=== PATIENT | female | born 1985 | race Caucasian/White ===

== ENCOUNTER 2023-12-27 09:21 | Outpatient (AMB) | payer BC, SELFPAY ==
[2023-12-27 09:26] VITALS: BP 120/70; PULSE 69; O2SAT 98; BMI 29.9
--- NOTE | 2023-12-27 09:26 | A.OFFPC_ITS ---
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 Is last menstrual period known: Yes Last menstrual period: 12/22/23 Allergies No Known Allergies Allergy (Verified 12/27/23 09:31) Tobacco use date assessed: 12/27/23 Dental Screening Dental Screen Date: 12/27/23 Did you have a dental visit in the last 12 months?: Yes Did you have a dental problem in the last 6 months where you did not have access to dental care?: No Was dental information given to patient?: Patient has dentist HPI HPI Comments History of Present Illness Details This is a 38-year-old female with a past medical history of iron- deficiency anemia in the setting of menorrhagia and mild persistent asthma presenting to [facility] care. She transferred from my practice at [facility]. Asthma has been quiet. No recent exacerbation. She takes albuterol as needed. She used to take Flovent as needed during illness, but it is no longer available. At her physical exam with me on 10/18/2023 she reported a full area or lump on the right side of her neck for the past 5 years. She reported no changes and no pain associated with it. She had an ultrasound completed at [facility] on [facility] which showed an ovoid focus measuring 0.8 cm which could represent a small lymph node or lobulation of the right thyroid lobe. A right thyroid nodule was detected incidentally below this. It is a 0.7 cm TI-RADS 5 nodule. The patient is very anxious about the finding. It did not meet criteria for biopsy, and follow up ultrasound in 1 year was recommended per re port. She spoke to a covering provider at [facility] about the findings in my absence, and she said she was given conflicting information about whether or not to get a CT scan of her neck. TSH normal 11/2023 at 1.64. She is taking her iron supplement every other day. Recent CBC and iron studies were essentially normal. OBGYN recommended taking Advil or control for periods. She has not interested in control at this time. ROS: Constitutional: No unexplained weight loss, fever, chills, fatigue or night sweats. Neurologic: No headache, dizziness, syncope Endocrine: No cold or heat intolerance. No polyuria or polydipsia. Physical exam: Constitutional: Alert, in no distress. Neck: Supple, Full range of motion. No lymphadenopathy. No palpable masses or thyroid enlargement. Psychiatric: Normal mood and affect [facility] Medical History (Updated 12/27/23 @ 10:40 by BETH Mendiola) Thyroid nodule Mild persistent asthma without complication History of sinusitis Iron deficiency anemia delivery delivered Anemia Surgical History (Updated 12/27/23 @ 10:41 by BETH Mendiola) History of delivery Family History (Updated 12/27/23 @ 10:42 by BETH Mendiola) Father High cholesterol Heart attack Brother Type 1 diabetes Maternal Grandmother Breast cancer Social History (Updated 12/27/23 @ 09:41 by Brandy Ibarra [facility]) Household Members: Family Both parents involved: No Caregiver staying overnight: No Housing: House Are you a primary nurse healthcare manager to a significant other at home: Yes Do you presently have visiting nurse or other home services: No Alcohol intake: never Patient Tobacco Use Status: Never used Tobacco e-Cigarette/Vaping Use: Never Used Special keanu needs: No service: No 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 1. Little interest or pleasure in doing things: not at all 2. Feeling down, depressed, or hopeless: not at all 3. Trouble falling or staying asleep, or sleeping too much: not at all 4. Feeling tired or having little energy: not at all 5. Poor appetite or overeating: not at all 6. Feeling bad about yourself - or that you are a failure or have let yourself or your family down: not at all 7. Trouble concentrating on things, such as reading the newspaper or watching television: not at all 8. Moving or speaking so slowly that other people could have noticed. Or the opposite - being so fidgety or restless that you have been moving around a lot more than usual: not at all 9. Thoughts that you would be better off or of hurting yourself in some way: not at all Total score: 0 Depression Screening Interpretation: Negative Depression Screening Done: Yes Source: Developed by Drs. Jaycob Wilkerson, Sujata Liu, Juarez Andre and colleagues, with an educational maicol from [employer]. Thrive Questionnaire Date Thrive assessed: 12/27/23 I am a: Patient What is your living situation today?: I have a steady place to live Within the past 12 months, did the food you bought not last and you didn't have the money to get more?: Never true Within the past 12 months, did you worry whether your food would run out before you got money to buy more?: Never true Do you have trouble paying for medicines?: No Do you have trouble getting transportation to medical appointments?: No Do you have trouble paying your heating and electricity bill?: No Do you have trouble taking care of your child, family member or friend?: No Do you have trouble with day-to-day activities such as bathing, preparing meals, shopping, managing finances, etc.?: No Are you currently unemployed and looking for a job?: No Are you interested in more education?: No THRIVE Score: 0 AUDIT C Alcohol Use Questionnaire (AUDIT-C) 1. How often do you have a drink containing alcohol?: Never 3. How often do you have six or more drinks on one occasion?: Never Total Score: 0 IRIS-7 AMB Questionnaire IRIS-7 Date IRIS - 7 assessed: 12/27/23 Feeling nervous, anxious, or on edge: 0 = Not at all Not being able to stop or control worryin = Not at all Worrying too much about different things: 0 = Not at all Trouble relaxin = Not at all Being so restless that it is hard to sit still: 0 = Not at all Becoming easily annoyed or irritable: 0 = Not at all Feeling afraid as if something awful might happen: 0 = Not at all Total IRIS-7 score (0-4 normal; 5-9 mild; 10-14 moderate; 15-21 severe): 0 Source: Developed by Drs. Jaycob Wilkerson, Juarez Robersonoenke and colleagues, with an educational maicol from [employer]. Physical exam (Primary Care) Vital Signs: Last Vital Signs Pulse 69 12/27/23 09:26 BP 120/70 12/27/23 09:26 Pulse Ox 98 12/27/23 09:26 Oxygen Delivery Method Room Air 12/27/23 09:26 BMI result Body Mass Index 29.9 Tobacco/Smoking Status: Tobacco use Status Tobacco use date assessed 12/27/23 12/27/23 09:46 Patient Tobacco Use Status Never used Tobacco 12/27/23 09:46 e-Cigarette/Vaping Use Never Used 12/27/23 09:46 PHQ-9: PHQ-9 Score PHQ-9: Total score 0 12/27/23 09:46 Depression Screening Interpretation: Negative Thrive Assessment: Date of Thrive Assessment Date Thrive assessed 12/27/23 12/27/23 09:46 Assessment and Plan Assessment & Plan (1) Thyroid nodule: Comment: TI-RADS 5 nodule on ultrasound 11/05/2023. Did not meet size criteria for biopsy at 0.7 cm. Patient referred to endocrinology. Per report ultrasound recommended in 1 year. Code(s): E04.1 - Nontoxic single thyroid nodule Plan: Patient is understandably anxious about this finding. We discussed criteria for biopsy. Seeing as though it is only 0.2 cm away from biopsy threshold and is TI-RADS 5 I ordered a repeat ultrasound for 3 months rather than 12 months, and I will also refer her to an facilities manager for further input on surveillance and decision to biopsy. I do not believe patient needs CT scan at this time as ultrasound would be the preferred imaging method for the nodule. (2) Mild persistent asthma without complication: Code(s): J45.30 - Mild persistent asthma, uncomplicated Plan: Stable. Continue albuterol as needed. Submitted QVAR RediHaler 1 puff twice daily to replace Flovent to activate during illness. Reviewed that she needs to be seen in office for evaluation for exacerbations. (3) Iron deficiency anemia: Code(s): D50.9 - Iron deficiency anemia, unspecified Plan: Continue low iron 1 tab every other day. Repeat labs at next follow up. Orders: Orders US thyroid 3 Months E04.1 - Nontoxic single thyroid nodule Referrals Endocrinology Referral E04.1 - Nontoxic single thyroid nodule Medications: New beclomethasone dipropionate 80 mcg/actuation (Qvar RediHaler) 1 inh inhalation Q12H 10.6 grams 2RF Coding Level of Care Code Est Pt Level 4 (48307) Complex EM visit Add On G2211 Diagnoses Thyroid nodule E04.1 Mild persistent asthma without complication J45.30 Iron deficiency anemia D50.9
== END 2023-12-27 10:27 | disposition home or self-care (01) ==
PROVIDERS: PCP Physician Assistant Medical; Visit Provider Physician Assistant Medical
DX: E04.1 Nontoxic single thyroid nodule (principal); J45.30 Mild persistent asthma, uncomplicated; D50.9 Iron deficiency anemia, unspecified
CPT/HCPCS: 99214

== ENCOUNTER 2024-03-18 10:13 | Outpatient (REF) | payer BC, SELFPAY ==
--- NOTE | ~2024-03-18 | US_ITS ---
EXAMINATION: US THYROID CLINICAL INFORMATION: Goiter. COMPARISON: None available. TECHNIQUE: Linear transducer grayscale and color Doppler examination with attention to the region of the thyroid. FINDINGS: SIZE: Measurements of the thyroid lobes and nodules are given in sagittal, anteroposterior and transverse dimensions respectively. Right Thyroid Lobe: 5.0 x 1.8 x 1.6 cm, volume 7.5 mL. Parenchyma: The gland echotexture is mildly heterogeneous. Thyroid vascularity is normal. Left Thyroid Lobe: 4.3 x 1.2 x 1.2 cm, volume 3.1 mL. Parenchyma: The gland echotexture is mildly heterogeneous. Thyroid vascularity is normal. Isthmus: 0.2 cm in maximum AP dimension. Estimated total number of nodules greater than or equal to 1 cm: 0. Gy[place]um Roofer nodules are described as follows: 1. Location: Right mid. Size: 0.6 x 0.5 x 0.4 cm, volume 0.06 mL. Nodule characteristics: Composition: Solid/almost completely solid (2). Echogenicity: Very hypoechoic (3). Shape: Not taller than wide (0). Margins: Ill-defined (0). Echogenic Foci: Peripheral calcifications (2). ACR TI-RADS total points: 7 ACR TI-RADS category: 5 NODES: No lymphadenopathy is seen in the tissue surrounding the thyroid gland. US/US thyroid IMPRESSION: Right 0.6 cm TR 5 thyroid nodule. Fine-needle aspiration recommended if more than or equal to 1 cm in maximum dimension. This study was presented today, March 18, 2024, for interpretation. Stat results provided at this time as requested by referring provider. ACR TI-RADS RECOMMENDATION REFERENCE: Ultrasound-guided fine-needle aspiration, followup ultrasound, no further follow up. * TR1 (0 point) and TR2 (2 points): No FNA or follow up. * TR3 (3 points): FNA if more than or equal to 2.5 cm in maximum dimension, followup ultrasound in 1, 3 and 5 years if 1.5 to 2.4 cm in maximum dimension. * TR4 (4-6 points): FNA if more than or equal to 1.5 cm in maximum dimension, followup ultrasound in 1, 2, 3 and 5 years if 1 to 1.4 cm in maximum dimension. * TR5 (more than or equal to 7 points): FNA if more than or equal to 1 cm in maximum dimension, followup ultrasound every year for 5 years if 0.5 to 0.9 cm in maximum dimension. * TR3, TR4 or TR5 nodules that are below the size threshold for followup receive no follow up. Electronically signed by: Alejandrina Timmons MD 03/18/2024 12:43 PM EDT RP
== END 2024-03-18 10:14 | disposition home or self-care (01) ==
LOC: HO.US 10:13
PROVIDERS: PCP Physician Assistant Medical; Visit Provider Physician Assistant Medical
DX: E04.1 Nontoxic single thyroid nodule (principal)
CPT/HCPCS: 76536

== ENCOUNTER 2024-03-20 11:36 | Outpatient (AMB) | payer BC, SELFPAY ==
--- NOTE | 2024-03-20 11:45 | A.OFFPC_ITS ---
Vital Signs 03/20/24 11:47 Height 5 ft 4 in Weight 172 lb BMI 29.5 BP 116/70 Blood Pressure Location Lt brachial Position Sitting Pulse 68 Pulse Source Pulse Oximeter Pulse Oximetry (%) 98 Oxygen Delivery Method Room Air Intake Visit Reasons: follow up thyroid/anemia Intake Note: Follow up Nursing Specialist Required: No Allergies No Known Allergies Allergy (Verified 03/20/24 11:46) Tobacco use date assessed: 12/27/23 Dental Screening Dental Screen Date: 12/27/23 HPI HPI Comments History of Present Illness Details This is a 38-year-old female with a past medical history of iron- deficiency anemia in the setting of menorrhagia, thyroid nodule and mild persistent asthma presenting for follow up. Asthma has been quiet. No recent exacerbation. She takes albuterol as needed. She has a prescription for QVAR to use if she gets sick. At her physical exam with ky on 10/18/2023 she reported a full area or lump on the right side of her neck for the past 5 years. She reported no changes and no pain associated with it. She had an ultrasound completed at [facility] on [facility] which showed an ovoid focus measuring 0.8 cm which could represent a small lymph node or lobulation of the right thyroid lobe. A right thyroid nodule was detected incidentally below this. It was a 0.7 cm TI-RADS 5 nodule not meeting criteria for biopsy, and a follow up ultra sound was recommended in 1 year. The patient was very anxious about the findings so we decided to get an ultrasound performed in 3 months and refer to endocrinology. She has an appointment scheduled with Dr. Simms, and that is in a few months. TSH normal 11/2023 at 1.64. The ultrasound was repeated at [facility] on 03/18/2024, and it showed a 0.6 x 0.5 x 0.4 cm right mid thyroid nodule, TI-RADS 5. We reviewed that for this size FNA is not indicated, and an ultrasound she be repeated in 1 year. She is taking her iron supplement every other day. OBGYN recommended taking Advil or control for periods. She has not interested in control at this time. ROS: Constitutional: No unexplained weight loss, fever, chills, fatigue or night sweats. Neurologic: No headache, dizziness, syncope Endocrine: No cold or heat intolerance. No polyuria or polydipsia. No dysphagia. Physical exam: Constitutional: Alert, in no distress. Neck: Supple, Full range of motion. No lymphadenopathy. No palpable thyroid masses. Respiratory: Clear to auscultation. Cardiovascular: S1 S2 regular. No murmurs. No carotid bruits. [facility] Medical History (Updated 03/20/24 @ 13:33 by BETH Mendiola) Thyroid nodule Mild persistent asthma without complication History of sinusitis Iron deficiency anemia delivery delivered Anemia Surgical History (Updated 12/27/23 @ 10:41 by BETH Mendiola) History of delivery Family History (Updated 12/27/23 @ 10:42 by BETH Mendiola) Father High cholesterol Heart attack Brother Type 1 diabetes Maternal Grandmother Breast cancer Social History (Updated 12/27/23 @ 09:41 by Brandy Ibarar [facility]) Household Members: Family Both parents involved: No Caregiver staying overnight: No Housing: House Are you a primary veterinarian laboratory animal care to a significant other at home: Yes Do you presently have visiting nurse or other home services: No Alcohol intake: never Patient Tobacco Use Status: Never used Tobacco e-Cigarette/Vaping Use: Never Used Special keanu needs: No service: No 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 Jaycob Wilkerson, Sujata Liu, Juarez Andre and colleagues, with an educational maicol from [employer]. Physical exam (Primary Care) Vital Signs: Last Vital Signs Pulse 68 03/20/24 11:47 BP 116/70 03/20/24 11:47 Pulse Ox 98 03/20/24 11:47 Oxygen Delivery Method Room Air 03/20/24 11:47 BMI result Body Mass Index 29.5 Tobacco/Smoking Status: Tobacco use Status Tobacco use date assessed 12/27/23 03/20/24 11:46 Patient Tobacco Use Status Never used Tobacco 03/20/24 11:46 e-Cigarette/Vaping Use Never Used 03/20/24 11:46 Thrive Assessment: Date of Thrive Assessment Date Thrive assessed 12/27/23 03/20/24 11:46 Coding Level of Care Code Est Pt Level 4 (84174) Complex EM visit Add On G2211 Diagnoses Iron deficiency anemia due to chronic blood loss D50.0 Iron deficiency anemia type: chronic blood loss Thyroid nodule E04.1 Mild persistent asthma without complication J45.30 Assessment & Plan Assessment & Plan (1) Iron deficiency anemia: Code(s): D50.9 - Iron deficiency anemia, unspecified Category: Medical Qualifiers: Iron deficiency anemia type: chronic blood loss Qualified Code(s): D50.0 - Iron deficiency anemia secondary to blood loss (chronic) Plan: Continue iron supplement every other day. Check labs. (2) Thyroid nodule: Code(s): E04.1 - Nontoxic single thyroid nodule Category: Medical Plan: Thyroid ultrasound reviewed with the patient. She feels reassured. She will keep the follow up appointment scheduled with the medical office technician to review this. Repeat ultrasound in 1 year is recommended. (3) Mild persistent asthma without complication: Code(s): J45.30 - Mild persistent asthma, uncomplicated Category: Medical Plan: Stable. Continue current regimen. Plan Patient will schedule her physical exam from 11/04/2024. Orders: Orders Complete Blood Count Auto Diff Today D50.9 - Iron deficiency anemia, unspecified Ferritin Today D50.9 - Iron deficiency anemia, unspecified US thyroid 1 Year E04.1 - Nontoxic single thyroid nodule IRON PROFILE Today D50.9 - Iron deficiency anemia, unspecified
[2024-03-20 11:47] VITALS: BP 116/70; PULSE 68; O2SAT 98; BMI 29.5
== END 2024-03-20 12:20 | disposition home or self-care (01) ==
PROVIDERS: PCP Physician Assistant Medical; Visit Provider Physician Assistant Medical
DX: D50.0 Iron deficiency anemia secondary to blood loss (chronic) (principal); E04.1 Nontoxic single thyroid nodule; J45.30 Mild persistent asthma, uncomplicated

== ENCOUNTER → 2024-03-20 11:36 | Outpatient (BNVA) | payer BC, SELFPAY | PROVIDERS: PCP Physician Assistant Medical; Visit Provider Physician Assistant Medical ==

== ENCOUNTER 2024-05-02 09:15 | Outpatient (REF) | payer BC, SELFPAY ==
[2024-05-02 11:02] LABS: MANUAL DIFF FLAG NO
[2024-05-02 11:24] LABS: Basophils Percent Auto 0.5 % (0-2); Eosinophils Absolute Auto 0.1 X10*3/uL (0.0-0.4); Eosinophils Percent Auto 1.3 % (0-4); Hematocrit 39.2 % (37.0-47.0); Hemoglobin 12.9 g/dl (12.0-16.0); Imm Gran Abs Auto 0.03 X10*3/uL (0.00-0.03); Imm Gran Pct Auto 0.4 % (0.0-0.4); Lymphocytes Absolute Auto 1.1 X10*3/uL (1.2-4.9); Lymphocytes Percent Auto 13.3 % (20-40); Mean Corpuscular HGB Conc 32.9 g/dl (31.0-35.0); Mean Corpuscular Hemoglobin 28.5 pg (27.0-33.0); Mean Corpuscular Volume 86.7 fL (80.0-98.0); Mean Platelet Volume 12.6 fL (9.4-12.3); Monocytes Absolute Auto 0.7 X10*3/uL (0.1-1.2); Monocytes Percent Auto 8.2 % (2-11); Neutrophils Absolute Auto 6.1 x10*3/uL (2.0-8.3); Neutrophils Percent Auto 76.3 % (45-73); Platelet Count 212 X10*3/uL (160-400); Red Blood Count 4.52 X10*6/uL (4.20-5.50); Red Cell Distribution Width 13.7 % (11.0-16.0)
[2024-05-02 12:36] LABS: Iron 112 mcg/dL (30-160); Percent Iron Saturation 41 % (15-50); Total Iron Binding Capacity 272 mcg/dL (228-428); Unsaturated Iron Binding 160 ug/dL
[2024-05-02 13:04] LABS: Ferritin 24 ng/mL (10-122)
== END 2024-05-02 09:16 | disposition home or self-care (01) ==
LOC: HO.WFDLDS 09:15
PROVIDERS: Visit Provider Physician Assistant Medical
DX: D50.9 Iron deficiency anemia, unspecified (principal)
CPT/HCPCS: 36415; 82728; 83540; 85025

== ENCOUNTER 2024-05-19 13:45 | Outpatient (AMB) | payer BC, SELFPAY ==
--- NOTE | 2024-05-19 13:35 | A.OFFPC_ITS ---
Intake Visit Reasons: sinus/cough Intake Note: Sinus pressure and cough 9-10 days, worsening the past three days Allergies No Known Allergies Allergy (Verified 05/19/24 13:36) Tobacco use date assessed: 12/27/23 Dental Screening Dental Screen Date: 12/27/23 HPI HPI Comments History of Present Illness Details This is a 39-year-old female with a past medical history of a thyroid nodule, iron-deficiency anemia, mild persistent asthma and sinusitis presenting for a sick visit. Patient visit conducted via telehealth. Symptoms began 05/10/2024. Endorses sinus congestion, copious postnasal drip, pain above her eyes and in her cheeks. Endorses cough that worsens at night and wheezing. Albuterol alleviate symptoms but only for 30 minutes to 60 minutes. Started Pulmicort and does not feel like it helps. Feels like all the congestion is stuck in her sinuses. She took a negative COVID-19 test at home. She denies fevers, chills, chest pain, nausea, vomiting. ROS: Constitutional: No fevers or chills. +fatigue Eyes: No vision changes, blurry vision, double vision, eye pain, eye redness, eye discharge. ENT: No ear pain or sore throat. See HPI Respiratory: No shortness of breath or hemoptysis Cardiovascular: No chest pain [facility] Medical History (Updated 03/20/24 @ 13:33 by BETH Mendiola) Thyroid nodule Mild persistent asthma without complication History of sinusitis Iron deficiency anemia delivery delivered Anemia Surgical History (Updated 12/27/23 @ 10:41 by BETH Mendiola) History of delivery Family History (Updated 12/27/23 @ 10:42 by BETH Mendiola) Father High cholesterol Heart attack Brother Type 1 diabetes Maternal Grandmother Breast cancer Social History (Updated 12/27/23 @ 09:41 by Brandy Ibarra CMA) Household Members: Family Both parents involved: No Caregiver staying overnight: No Housing: House Are you a primary care assistant to a significant other at home: Yes Do you presently have visiting nurse or other home services: No Alcohol intake: never Patient Tobacco Use Status: Never used Tobacco e-Cigarette/Vaping Use: Never Used Special keanu needs: No service: No 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 How often do you have six or more drinks on one occasion?: Never Total Score: 0 IRIS-7 AMB Questionnaire IRIS-7 Date IRIS - 7 assessed: 12/27/23 Source: Developed by Drs. Jaycob Wilkerson, Sujata Liu, Juarez Andre and colleagues, with an educational maicol from [employer]. Physical exam (Primary Care) Tobacco/Smoking Status: Tobacco use Status Tobacco use date assessed 12/27/23 05/19/24 13:37 Patient Tobacco Use Status Never used Tobacco 05/19/24 13:37 e-Cigarette/Vaping Use Never Used 05/19/24 13:37 Thrive Assessment: Date of Thrive Assessment Date Thrive assessed 12/27/23 05/19/24 13:37 Telehealth Telehealth Telehealth Platform: Telephone Location of provider rendering services: practice address Location of patient: address on file Patient Identification confirmed using: Name, : Yes Telehealth method: voice only Patient verbally consented to treatment: No Patient verbally consented to billing insurance company: No Patient informed of any privacy concerns related to visit: No Minutes spent on Phone/Video with Pt.: 11 Coding Level of Care Code Tele Est Pt Level 4 (75169) Diagnoses Mild persistent asthma with exacerbation J45.31 Acute sinusitis J01.90 Assessment & Plan Assessment & Plan (1) Mild persistent asthma with exacerbation: Code(s): J45.31 - Mild persistent asthma with (acute) exacerbation (2) Acute sinusitis: Code(s): J01.90 - Acute sinusitis, unspecified Plan Prescribed prednisone taper for exacerbation. Side effects and administration reviewed. Sent Augmentin 1 pill twice daily times 10 days. Take with food and have yogurt and probiotics. Discontinue Pulmicort. I will see if insurance will cover Flovent which she activates during illness to prevent asthma exacerbation. This medication has been effective for her in the past. Recommended rest, fluids, cool mist humidifier, Vicks. Warning signs warranting ER evaluation review. Patient will call if symptoms do not resolve or worsen. Medications: New prednisone orally 1 time a day; Take 3 tabs po qam x 3 days, then take 2 tabs po qam x 3 days, then take 1 tab po qam x 3 days 18 tabs 0RF amoxicillin-pot clavulanate 875-125 mg 1 tab PO BID 20 tabs 0RF fluticasone propionate 110 mcg/actuation 1 puff inhalation Q12H 12 grams 3RF Discontinued beclomethasone dipropionate 80 mcg/actuation (Qvar RediHaler) Discontinued Reason: Doctor's Order 1 inh inhalation Q12H 10.6 grams 2RF budesonide 90 mcg/actuation (Pulmicort Flexhaler) Discontinued Reason: Doctor's Order 2 inhalations inhalation Q12H 1 ea 5RF
== END 2024-05-19 14:48 | disposition home or self-care (01) ==
LOC: HO.HMCFM 13:45
PROVIDERS: PCP Physician Assistant Medical; Visit Provider Physician Assistant Medical
DX: J45.31 Mild persistent asthma with (acute) exacerbation (principal); J01.90 Acute sinusitis, unspecified

== ENCOUNTER → 2024-05-19 13:45 | Outpatient (BNVA) | payer BC, SELFPAY | PROVIDERS: PCP Physician Assistant Medical; Visit Provider Physician Assistant Medical ==

== ENCOUNTER 2024-10-27 10:23 | Outpatient (AMB) | payer BC, SELFPAY ==
--- NOTE | 2024-10-27 10:26 | MHC.PC.OV ---
Vital Signs 10/27/24 10:31 Height 5 ft 4 in Weight 171 lb 2 oz BMI 29.4 BP 102/72 Blood Pressure Location Rt brachial Position Sitting Pulse 64 Pulse Source Pulse Oximeter Temp 97.4 F Temp Source Temporal Artery Scan Pulse Oximetry (%) 99 Oxygen Delivery Method Room Air Intake Visit Reasons: annual physical Intake Note: Floresita presents in the office today for her annual physical. Allergies No Known Allergies Allergy (Verified 10/27/24 10:29) Tobacco use date assessed: 10/27/24 Dental Screening Dental Screen Date: 10/27/24 Did you have a dental visit in the last 12 months?: No Did you have a dental problem in the last 6 months where you did not have access to dental care?: No Was dental information given to patient?: Patient declined HPI HPI Comments History of Present Illness Details This is a 39-year-old female with a past medical history of iron-deficiency anemia in the setting of menorrhagia, thyroid nodule and mild persistent asthma presenting for a physical. Asthma has been quiet. No recent exacerbation. She takes albuterol as needed. Her insurance has not been covering the inhalers, but she says her children are on the same insurance and get fluticasone now. I submitted this to the pharmacy. She tried dry powdered inhalers, but they were ineffective. She got flu this past year and had pneumonia but did not require hospitalization. We discussed getting the pneumococcal vaccine, and I recommended receiving this at the pharmacy. She does not get flu vaccine or COVID vaccines by choice. Patient seen by endocrinology for the thyroid nodule which was demonstrated on ultrasound. She has a another order to repeat the thyroid ultrasound in March. She is taking her iron supplement every other day. OBGYN recommended taking Advil or control for periods. She has not interested in control at this time. She is overdue for an exam, and she will contact her plate painter. She is under a lot of stress. Her 12-year-old son is having behavioral issues at home and school. He will be doing a partial hospitalization program. He has ADHD and OCD. It is very frustrating and sad for her. He has been hospitalized for suicide ideation. She also has a 6-year-old at home who is doing very well. Patient says she does not feel depressed or overly anxious, and she is not interested in a referral for counseling or other support at this time. Tdap 08/06/2018. .ROS: Constitutional: No unexplained weight loss, fever, chills, fatigue or night sweats. Eyes: No vision changes, blurry vision, double vision, eye pain, eye redness, eye discharge. ENT: No hearing loss, sneezing, congestion, runny nose or sore throat. Respiratory: No shortness of breath, cough or sputum production. Cardiovascular: No chest pain, chest pressure or chest discomfort. No palpitations or pedal edema. Gastrointestinal: No anorexia, nausea, vomiting or diarrhea. No abdominal pain or blood in stool. Genitourinary: No dysuria, hematuria, urinary frequency. Neurologic: No headache, dizziness, syncope, unilateral weakness, ataxia, numbness or tingling in the extremities. Musculoskeletal: No muscle pain, back pain, joint pain or swelling. Hematologic/Lymphatics: No bleeding or bruising. No painful lymph nodes. Skin: No rash , changing moles or new moles Endocrine: No cold or heat intolerance. No polyuria or polydipsia. Psychiatric: No depression or anxiety. No SI/HI. See HPI Physical exam: Constitutional: Alert, in no distress. Head: Normocephalic. Eyes: Pupils are equal, round and reactive to light. Extraocular muscles intact. Ear, Nose and Throat: Canals clear. TMs normal. Normal nasal mucosa. No nasal discharge. No oral lesions. Neck: Supple, Full range of motion. No lymphadenopathy. No palpable thyroid masses. Respiratory: Clear to auscultation. Cardiovascular: S1 S2 regular. No murmurs Gastrointestinal: Abdomen soft, non-tender, non-distended. Normal bowel sounds. No palpable masses. Neurologic: No focal neurological deficits. Symmetric patellar reflexes. Moves all extremities spontaneously. Sensation intact bilaterally. Skin: No rashes Musculoskeletal: No gross deformities. Normal range of motion. Extremities: Warm and well perfused. No clubbing, cyanosis or edema. Intact peripheral pulses bilaterally Psychiatric: Normal mood and affect [facility], [facility] Medical History (Updated 10/27/24 @ 11:00 by BETH Mendiola) Screening for cardiovascular condition Routine physical examination Thyroid nodule Mild persistent asthma without complication History of sinusitis Iron deficiency anemia delivery delivered Anemia Surgical History (Updated 12/27/23 @ 10:41 by BETH Mendiola) History of delivery Family History (Updated 10/27/24 @ 10:31 by Pratima Price MA) Father High cholesterol Heart attack Brother Type 1 diabetes Maternal Grandmother Breast cancer Social History (Updated 12/27/23 @ 09:41 by Brandy Ibarra [facility]) Household Members: Family Both parents involved: No Caregiver staying overnight: No Housing: House Are you a primary care management specialist to a significant other at home: Yes Do you presently have visiting nurse or other home services: No Alcohol intake: never Patient Tobacco Use Status: Never used Tobacco e-Cigarette/Vaping Use: Never Used Special keanu needs: No service: No 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 1. Little interest or pleasure in doing things: not at all 2. Feeling down, depressed, or hopeless: not at all 3. Trouble falling or staying asleep, or sleeping too much: not at all 4. Feeling tired or having little energy: not at all 5. Poor appetite or overeating: not at all 6. Feeling bad about yourself - or that you are a failure or have let yourself or your family down: not at all 7. Trouble concentrating on things, such as reading the newspaper or watching television: not at all 8. Moving or speaking so slowly that other people could have noticed. Or the opposite - being so fidgety or restless that you have been moving around a lot more than usual: not at all 9. Thoughts that you would be better off or of hurting yourself in some way: not at all Total score: 0 Depression Screening Interpretation: Negative Depression Screening Done: Yes [id number] - PHQ-9 Billing: Patient declined-do not bill Source: Developed by Drs. Jaycob Wilkerson, Sujata Liu, Juarez Andre and colleagues, with an educational maicol from [employer]. Thrive Questionnaire Date Thrive assessed: 10/27/24 I am a: Patient What is your living situation today?: I have a steady place to live Within the past 12 months, did the food you bought not last and you didn't have the money to get more?: Never true Within the past 12 months, did you worry whether your food would run out before you got money to buy more?: Never true Do you have trouble paying for medicines?: No Do you have trouble getting transportation to medical appointments?: No Do you have trouble paying your heating and electricity bill?: No Do you have trouble taking care of your child, family member or friend?: No Do you have trouble with day-to-day activities such as bathing, preparing meals, shopping, managing finances, etc.?: No Are you currently unemployed and looking for a job?: No Are you interested in more education?: No Please select the resources that you would like help with: None Currently or been in a relationship where the following occur: No concerns reported THRIVE Score: 0 AUDIT C Alcohol Use Questionnaire (AUDIT-C) 1. How often do you have a drink containing alcohol?: Never Total Score: 0 Score Reviewed/Action Taken: No IRIS-7 AMB Questionnaire RIIS-7 Date IRIS - 7 assessed: 10/27/24 Feeling nervous, anxious, or on edge: 1 = Several days Not being able to stop or control worryin = Not at all Worrying too much about different things: 0 = Not at all Trouble relaxin = Not at all Being so restless that it is hard to sit still: 0 = Not at all Becoming easily annoyed or irritable: 0 = Not at all Feeling afraid as if something awful might happen: 1 = Several days Total IRIS-7 score (0-4 normal; 5-9 mild; 10-14 moderate; 15-21 severe): 2 Source: Developed by Drs. Jaycob Wilkerson, Sujata Liu, Juarez Andre and colleagues, with an educational maicol from [employer]. IRIS-7 Assessment Billing IRIS-7 Assessment Tool: IRIS-7 Assessment 97642 Physical exam (Primary Care) Vital Signs: Last Vital Signs Temp 97.4 F 10/27/24 10:31 Pulse 64 10/27/24 10:31 BP 102/72 10/27/24 10:31 Pulse Ox 99 10/27/24 10:31 Oxygen Delivery Method Room Air 10/27/24 10:31 BMI result Body Mass Index 29.4 Tobacco/Smoking Status: Tobacco use Status Tobacco use date assessed 10/27/24 10/27/24 10:34 Patient Tobacco Use Status Never used Tobacco 10/27/24 10:34 e-Cigarette/Vaping Use Never Used 10/27/24 10:34 PHQ-9: PHQ-9 Score PHQ-9: Total score 0 10/27/24 10:50 Depression Screening Interpretation: Negative Thrive Assessment: Date of Thrive Assessment Date Thrive assessed 10/27/24 10/27/24 10:34 Currently or been in a relationship where the following occur: No concerns reported Coding Level of Care Code Est Pt Prev Care 18-39y(81178) Diagnoses Routine physical examination Z00.00 Iron deficiency anemia due to chronic blood loss D50.0 Iron deficiency anemia type: chronic blood loss Mild persistent asthma without complication J45.30 Thyroid nodule E04.1 Additional Codes IRIS-7 Assessment Billing - IRIS-7 Assessment Tool: IRIS-7 Assessment 44990 ([id number]) Assessment & Plan Assessment & Plan (1) Routine physical examination: Code(s): Z00.00 - Encounter for general adult medical examination without abnormal findings Category: Medical (2) Iron deficiency anemia: Code(s): D50.9 - Iron deficiency anemia, unspecified Category: Medical Qualifiers: Iron deficiency anemia type: chronic blood loss Qualified Code(s): D50.0 - Iron deficiency anemia secondary to blood loss (chronic) (3) Mild persistent asthma without complication: Code(s): J45.30 - Mild persistent asthma, uncomplicated Category: Medical (4) Thyroid nodule: Code(s): E04.1 - Nontoxic single thyroid nodule Category: Medical Plan Patient is seen today for a routine physical. As part of this visit we reviewed the following issues, which are considered and essential part of preventative health in this age group: - Breast Cancer screening - Annual Coordinate Measuring Equipment Operator exam - Blood pressure screening - Cholesterol screening - Osteoporosis prevention including calcium/vitamin D intake, weight bearing exercise & smoking cessation - Nutritional and exercise counseling - Counseling of injury prevention including fire prevention, smoke alarms and seat belt usage - Screening for depression - Education about skin cancer - Recommendations about immunizations - Recommendation of an eye exam - Screening for substance abuse She has a thyroid ultrasound order for March. Check TSH. She is going to follow up with endocrinology. Submitted fluticasone. Continue albuterol as needed. Patient tried dry powder inhaler which was ineffective. Check labs for anemia. Orders: Orders Complete Blood Count no Diff Today D50.0 - Iron deficiency anemia secondary to blood loss (chronic), E04.1 - Nontoxic single thyroid nodule, Z00.00 - Encounter for general adult medical examination without abnormal findings, Z13.6 - Encounter for screening for cardiovascular disorders IRON PROFILE Today D50.0 - Iron deficiency anemia secondary to blood loss (chronic), D64.9 - Anemia, unspecified, E04.1 - Nontoxic single thyroid nodule, Z00.00 - Encounter for general adult medical examination without abnormal findings, Z13.6 - Encounter for screening for cardiovascular disorders Ferritin Today D50.0 - Iron deficiency anemia secondary to blood loss (chronic), E04.1 - Nontoxic single thyroid nodule, Z00.00 - Encounter for general adult medical examination without abnormal findings, Z13.6 - Encounter for screening for cardiovascular disorders Comprehensive Met. Panel Today D50.0 - Iron deficiency anemia secondary to blood loss (chronic), E04.1 - Nontoxic single thyroid nodule, Z00.00 - Encounter for general adult medical examination without abnormal findings, Z13.6 - Encounter for screening for cardiovascular disorders TSH reflex Free T4 Today D50.0 - Iron deficiency anemia secondary to blood loss (chronic), E04.1 - Nontoxic single thyroid nodule, Z00.00 - Encounter for general adult medical examination without abnormal findings, Z13.6 - Encounter for screening for cardiovascular disorders Lipid Panel Today D50.0 - Iron deficiency anemia secondary to blood loss (chronic), E04.1 - Nontoxic single thyroid nodule, E78.5 - Hyperlipidemia, unspecified, Z00.00 - Encounter for general adult medical examination without abnormal findings, Z13.6 - Encounter for screening for cardiovascular disorders Medications: New fluticasone propionate 110 mcg/actuation 1 puff inhalation BID 12 grams 5RF
[2024-10-27 10:31] VITALS: BP 102/72; PULSE 64; TEMP 36.3; O2SAT 99; BMI 29.4
--- OUTSIDE RECORDS SUMMARY | 2024-10-27 10:57 | XMS_ITS | Data Portability ---
Author Organization BETH Romero [facility], [address] Address [address] [place] [address] Assessment No assessment recorded. Plan of Treatment Reminders Order Date Submit Date Provider Last Modified By Organization Details Last Modified Time Details Appointments None recorded. Lab rapid flu (A+B) 2024 025 [email or web address] [facility] [facility], [address] [place], [address], 19:24:02 Referral None recorded. Procedures None recorded. Surgeries None recorded. Imaging None recorded. Medication Orders Tamiflu 75 mg capsule 2024 025 [facility] #[id number], [address] [place], [address], 19:25:43 Zithromax Z-Collin 250 mg tablet 2024 025 [facility] #[id number], [address] [place], [address], 19:25:43 Patient TargetsNo targets recorded. Patient Instructions Encounter Date Encounter Id Patient Instructions Last Modified By Organization Details Last Modified Time 07/13/2024 [id number] walking pneumonia: care instructions [email or web address] Not available 07/13/2024 19:26:12 You can take ove r the counter tylenol or ibuprofen per package instructions for the pain. See printed instructions. Follow-up with your doctor if no improvement in 1 week. Seek Emergency Medical evaluation for any worsening symptoms. [email or web address] Not available 07/13/2024 19:25:54 Reason for Referral None Reported. Results Created Date Observation Date Name Description Value Unit Range Abnormal Flag Note LastModifiedBy Organization Detail LastModifiedTime 07/13/1907/13/2024 rapid flu (A+B) Unknown Analyte negati ve Not Available [facility] [address] [place] [address], [phone], 07/13/2024 17:45:11 07/13/1907/13/2024 rapid flu (A+B) Unknown Analyte negati ve Not Available [address], [address], 07/13/2024 17:45:11 07/13/1907/13/2024 rapid flu (A+B) Unknown Analyte yes Not Available [address], [address], 07/13/2024 17:45:11 Result Notes None recorded. Problems No Known Problems Medical Equipment None Reported. Allergies No known drug allergies Medications Name Sig Start Date Stop Date Status Note LastModified by Organization Details LastModified Time prednisone 20 mg tablet 07/13 completed Not Available Not Available Not Available Zithromax Z-Collin 250 mg tablet TAKE 2 TABLETS (500 MG) BY ORAL ROUTE ONCE DAILY FOR 1 DAY THEN 1 TABLET (250 MG) BY ORAL ROUTE ONCE DAILY FOR 4 DAYS 2024 active Not Available Not Available Not Avai lable Tamiflu 75 mg capsule Take 1 capsule twice a day by oral route as directed for 5 days, for Flu-like illness. 2024 active Not Available Not Available Not Avai lable amoxicillin 875 mg-potassiu m clavulanate 125 mg tablet 07/13 completed Not Available Not Available Not Available Pulmicort Flexhaler 90 mcg/actuati on breath activated active Not Available Not Available No t Available Vitals Date Recorded Body height Body weight Oxygen saturation Oxygen saturation in Arterial blood by Pulse oximetry Pain severity - 0-10 verbal numeric rating [Score] - Reported Heart rate Respiratory rate Body temperature Systolic blood pressure Diastolic blood pressure Provider Name and Address Organization Details Last Updated DateTime 162.56 cm 32330.7 4 g 99 % 99 % 0 75 /min 18 /min 99.2 [degF] 125 mm[Hg] 80 mm[Hg] Dawn Singh PA - [facility] 17:43:48 Social History Question Answer Notes LastModified by Organizat ion Details LastModified Time Tobacco Smoking Status Never Smoker Dawn Francisco paul PA - [facility] 07/13/2024 17:44:45 Have You Had A Flu Shot This Season? No [email or web address] Information not available 07/13/2024 What Was The Date Of Your Most Recent Tobacco Screening? 07/13/2024 [email or web address] Information not available 07/13/2024 Are You Passively Exposed To Smoke? No [email or web address] Information not available 07/13/2024 Have You Recently Traveled Abroad? No [email or web address] Information not available 07/13/2024 Sex: Unknown Functional Status Question Answer Note LastModified by Organizat ion Details LastModified Time Do you use any illicit or recreational drugs? No [email or web address] Information not available 07/13/2024 Do you or have you ever used any other forms of tobacco or nicotine? No [email or web address] Information not available 07/13/2024 Are you currently employed? Yes Information not available 07/13/2024 Mental Status None recorded. Family History Nothing Reported. Medical History No medical history recorded. Gynecological History Statement/Question Response Date of LMP 07/09/2024 Is there any chance of ? No LMP Approximate Obstetrics History GPAL:G 0 P 0 0 0 0 Past Encounters Encounter ID Performer Location Encounter Start Date Encounter Closed Date Diagnosis/Indication Diagnosis SNOMED-CT Code Diagnosis ICD10 Code Diagnosis Note [id number] [facility] [address] [place] [phone] 08/03/2017 11:18:45 08/03/2017 11:58:27 [id number] LUKAS DE LOS SANTOS MD [address] [place] [phone] 07/13/2024 17:27:48 07/13/2024 19:27:47 Cough 46767412 R05.9 Atypical pneumonia 57677 6009 J18.9 Influenza- like illness 09940252 B34.9 Tamiflu per patient request. Health Concerns Section Related Observation LastModified by Organization Detai ls LastModified Time None Recorded Concern Status LastModified by Organization Details LastModified Time None Recorded Advance Directives Directive None Recorded Payers Insurance Date Sequence Insurance Name Policy Number Policy Carrera Covered Member ID Carrera Member ID Guarantor Name 07/13/2024 1 [facility] [id number] Uriel Colon [id number] Floresita Colon Notes Date Note Type Note Provider Name and Address Organization Details Recorded Time 07/13/2024 text/html 39 y F c/o cough , body ache and head ache x 1 day. Family has the flu. She is requesting Tamiflu based on her symptoms and states that it worked well for her in the past. LUKAS DE LOS SANTOS MD [address] [place], [address], PA - [facility] 07/13/2024 19:27:48 OBGyn Episode No OBEpisode recorded.
== END 2024-10-27 11:25 | disposition home or self-care (01) ==
LOC: HO.HMCFM 10:23
PROVIDERS: PCP Physician Assistant Medical; Visit Provider Physician Assistant Medical
DX: Z00.00 Encounter for general adult medical examination without abnormal findings (principal); D50.0 Iron deficiency anemia secondary to blood loss (chronic); J45.30 Mild persistent asthma, uncomplicated; E04.1 Nontoxic single thyroid nodule

== ENCOUNTER → 2024-10-27 10:23 | Outpatient (BNVA) | payer BC, SELFPAY | PROVIDERS: PCP Physician Assistant Medical; Visit Provider Physician Assistant Medical | DX: Z00.00 Encounter for general adult medical examination without abnormal findings (principal); D50.0 Iron deficiency anemia secondary to blood loss (chronic); J45.30 Mild persistent asthma, uncomplicated; E04.1 Nontoxic single thyroid nodule | CPT/HCPCS: 96127 ==

== ENCOUNTER 2025-01-09 08:45 | Outpatient (REF) | payer BC, SELFPAY ==
--- OUTSIDE RECORDS SUMMARY | 2025-01-09 08:58 | XMS_ITS | Data Portability ---
Author Organization [facility], [address] Address [address] [place] [address] Assessment No assessment recorded. Plan of Treatment Reminders Order Date Submit Date Provider Last Modified By Organization Details Last Modified Time Details Appointments None recorded. Lab rapid flu (A+B) 2024 025 [email or web address] 247 [facility] [address], [address] [place], [address], 19:24:02 Referral None recorded. Procedures None recorded. Surgeries None recorded. Imaging None recorded. Medication Orders Tamiflu 75 mg capsule 2024 025 [facility]acy #[id number], [address] [place], [address], 19:25:43 Zithromax Z-Collin 250 mg tablet 2024 025 [facility] #[id number], [address] [place], [address], 19:25:43 Patient TargetsNo targets recorded. Patient Instructions Encounter Date Encounter Id Patient Instructions Last Modified By Organization Details Last Modified Time 07/13/2024 [id number] walking pneumonia: care instructions [email or web address] Not available 07/13/2024 19:26:12 You can take ove r the counter tylenol or ibuprofen per package instructions for the pain. See printed instructions. Follow-up with your doctor if no improvement in 1 week. Seek Emergency Medical evaluation for any worsening symptoms. [email or web address] Not available 07/13/2024 19:25:54 Reason for Referral None Reported. Results Created Date Observation Date Name Description Value Unit Range Abnormal Flag Note LastModifiedBy Organization Detail LastModifiedTime 07/13/1907/13/2024 rapid flu (A+B) Unknown Analyte negati ve Not Available [facility] [address] [place] [address], [address], 07/13/2024 17:45:11 07/13/1907/13/2024 rapid flu (A+B) Unknown Analyte negati ve Not Available [facility] [address] [place] [address], [phone], 07/13/2024 17:45:11 07/13/1907/13/2024 rapid flu (A+B) Unknown Analyte yes Not Available [facility] [address] [place] [address], [phone], 07/13/2024 17:45:11 Result Notes None recorded. Problems [...] Heart rate Respiratory rate Body temperature Systolic And Diastolic Provider Name and Address Organization Details Last Updated DateTime 162.56 cm 72562.7 4 g 99 % 99 % 0 75 /min 18 /min 99.2 [degF] 125/80 mm[Hg] Dawn Signh PA - [facility] 17:43:48 Social History Question Answer Notes LastModified by Organizat ion Details LastModified Time Tobacco Smoking Status Never Smoker Dawn paul PA - [facility] 07/13/2024 17:44:45 Have You Had A Flu Shot This Season? No [email or web address] Information not available 07/13/2024 What Was The Date Of Your Most Recent Tobacco Screening? 07/13/2024 [email or web address] Information not available 07/13/2024 Are You Passively Exposed To Smoke? No [email or web address] Information not available 07/13/2024 Have You Recently Traveled Abroad? No [email or web address] Information not available 07/13/2024 Sex: Unknown Functional Status Question Answer Note LastModified by Organizat ion Details LastModified Time Do you use any illicit or recreational drugs? No Information not available 07/13/2024 Do you or have you ever used any other forms of tobacco or nicotine? No [email or web address] Information not available 07/13/2024 Are you currently employed? Yes [email or web address] Information not available 07/13/2024 Mental Status None [...] SNOMED-CT Code Diagnosis ICD10 Code Diagnosis Note [id number] 21004[facility] [address] [facility] [address] [place] [phone] 08/03/2017 11:18:45 08/03/2017 11:58:27 [id number] LUKAS DE LOS ASNTOS [place] [address] [facility] [place] [phone] 07/13/2024 17:27:48 07/13/2024 19:27:47 Cough 96768375 R05.9 Atypical pneumonia 44247 6009 J18.9 Influenza- like illness 53564219 B34.9 Tamiflu per patient request. Health Concerns Section Related Observation LastModified by Organization Detai ls LastModified Time None Recorded Concern Status LastModified by Organization Details LastModified Time None Recorded Advance Directives Directive None Recorded Payers Insurance Date Sequence Insurance Name Policy Number Policy Carrera Covered Member ID Carrera Member ID Guarantor Name 07/13/2024 1 [facility] [place] [id number] Uriel Colon [id number] Floresita Colon Notes Date Note Type [...] LOS SANTOS MD [address] [place], [address], PA - [facility] 07/13/2024 19:27:48 OBGyn Episode No OBEpisode recorded.
--- OUTSIDE RECORDS SUMMARY | 2025-01-09 08:58 | XMS_ITS ---
Author Name [facility] Organization Unknown Encounters Encounter Type Encounter Reason Primary Diagnosis Location Date Ambulatory [facility], [facility]. ([facility]) 07/13/2024 Care Team Organization Name Specialty Phone Email Start Date End Da te [facility] Malcolm Haji Primary Care 08/23/202201/16 [facility] JESSICA Alexandra Primary Care 04/25/202201/16
--- OUTSIDE RECORDS SUMMARY | 2025-01-09 08:58 | XMS_ITS | Clinical Summary ---
Author Organization [facility] Address [address] [place] [id number] Phone Care Team Providers Care Customer Service Teller Name Role Phone Lorenza Tony Primary Care Provide r Allergies No known active allergies Medications albuterol (ACCUNEB) 0.63 mg/3 mL nebulizer solution Take 1 ampule by nebulization every 6 (six) hours as needed for wheezing. Active fluticasone propionate (FLOVENT HFA) 110 mcg/actuation inhaler Inhale 1 puff into the lungs 2 (two) times a day. Active guaiFENesin-cod eine (ROBITUSSIN AC) 100-10 mg/5 mL liquid Take 5 mL (10 mg of codeine total) by mouth 3 (three) times a day as needed for cough. 120 mL 9 Active Additional Information Patient not taking.Reported on 07/27/2019 ferrous sulfate (SLOW FE ORAL) Take by mouth. Active multivitamin-Ca -iron-minerals 27-0.4 mg Tab Take by mouth daily. Active PULMICORT FLEXHALER 180 mcg/actuation inhaler 5 Active budesonide (PULMICORT FLEXHALER) 90 mcg/actuation inhaler Active meloxicam (MOBIC) 15 MG tabletIndicatio ns:Acute pain of left shoulder Take 1 tablet (15 mg total) by mouth daily. 15 tablet 5 Active Active Problems Problem Noted Date Diagnosed Date Multiple thyroid nodules 08/17/2024 Assessment & Plan (08/17/2024 7:48 PM EST): 39-year-old woman noticed a small nodule in the right anterior neck while in 2019. This nodule was getting a bit larger than smaller again, it did not bother her. Her first thyroid ultrasound in 10/2023 reported a right upper pole area 8 mm nodule possibly a lymph node or lobulation of the thyroid. She also had a right lower pole 7 mm TI-RADS 5 nodule besides less than 1 cm scattered nodules in both lobes. She had a follow-up ultrasound in 03/2024, report is not available but by PCP's interpretation patient had a right 6 mm nodule. She has no history of radiation exposure to the head and neck. Her maternal aunt has Mayuri's thyroiditis and mother was recently diagnosed with borderline thyroid labs, details unknown. Patient is clinically and biochemically euthyroid. Last TSH was 1.64 in 11/2023. She has an asymmetric thyroid with a slightly enlarged right lobe without palpable nodule. No compression symptoms in the thyroid bed. We discussed basic thyroid physiology, meaning of TFTs. Reviewed that thyroid nodules are frequent and most thyroid nodules are benign. A TI-RADS 5 nodule has a risk of malignancy of 35% and recommendation is to do FNA if a TI-RADS 5 nodule is 10 mm or larger. -Will request thyroid ultrasound images from 11/14/2023 and 03/2024 from [facility]. -Repeat ultrasound in 03/2025 -Repeat TSH with TPO Immunizations Immunization Administration Dates Next Due COVID-19 (Pre-04/09) Jake Vaccine, [id number], PF 05/27/2021 DTP 06/21/1991, 8,1986,09/05,1986 Hepatitis B 10/27/1998,05/28/1998,04/27/1998 Hib,HbOC 11/13/1987 Influenza Trivalent w/ Preservative IM 1 MMR 01/03/1999,09/04/1987 Meningococcal MPSV4 02/13/2005 Td (adult),2 Lf Tetanus Toxo id, PF, Adsorbed 01/03/1999 Tdap 08/06/2018,10/26/2008 Social History Tobacco Use Types Packs/Day Years Used Date Smoking Tobacco: Never Smokeless Tobacco: Never Tobacco Cessation:Counseling Given: Not Answered Alcohol Use Standard Drinks/Week Comments Never 0 (1 standard drink = 0.6 oz pur e alcohol) Education Answer Date Recorded Are you interested in more education? Not on jesenia e 10/13/2022 Are you concerned about learning? Not on file 10/13/2022 No 10/13/2022 No 10/13/2022 Digital Access Answer Date Recorded No 11/13/2022 No 11/13/2022 Reliable internet access at home? Not on file 11/13/2022 Device with a working camera? Not on file Comments Unknown Sex and Gender Information Value Date Recorded Sex Assigned at Not on file Legal Sex Female 9:12 PM EDT Gender Identity Not on file Sexual Orientation Not on file Last Filed Vital Signs Vital Sign Reading Time Taken Comments Blood Pressure 123/83 09/05/2024 12:15 PM EDT Pulse 78 09/05/2024 12:15 PM EDT Temperature 36.7 C (98 F) 09/05/2024 12:15 PM EDT Respiratory Rate 18 09/05/2024 12:15 PM EDT Oxygen Saturation 99% 09/05/2024 12:15 PM EDT Inhaled Oxygen Concentration - - Weight 78.9 kg (174 lb) 07/30/2024 8:57 AM EST Height 163.8 cm (5' 4.49 ) 07/30/2024 8:57 AM ES T Body Mass Index 29.42 07/30/2024 8:57 AM EST Plan of Treatment Upcoming Encounters Date Type Department Care Team (Late st Contact Info) Description 04/13/2025 11:00 AM EDT Office Visit [facility] [address] [place] [address] [place] [address] Marcela Simms MD [address] [id number] [email or web address] Health Maintenance Due Date Last Done Comments DEPRESSION SCREENING 1998 HEPATITIS C SCREENING 2004 HIV ONE-TIME SCREENING (18-6 5 YEARS) 2004 PAP SMEAR 2007 SCREENING FOR DIABETES 2021 COVID-19 VACCINE (4 - 2023-2 5 season) 2024 05/27/2021, 05/27/2021, 09/22/2020 Adult Td,Tdap Booster 08/06/2028 08/06/2018 , 10/26/2008, 01/03/1999 HIB VACCINES Completed 11/13/1987 MENINGOCOCCAL VACCINES (ACWY) Aged Out 02/13/2005 No longer eligible based on patient's age to complete this topic SMOKING STATUS SCREENING (On ce After 26 Yrs) Completed 09/05/2024 HEPATITIS A VACCINES Aged Out No long er eligible based on patient's age to complete this topic MENINGOCOCCAL VACCINES (B) Aged Out N o longer eligible based on patient's age to complete this topic PNEUMOCOCCAL VACCINES (0-49 years) Aged Out No longer eligible b ased on patient's age to complete this topic Medical Devices Not on file Insurance [facility] [place] [address] [address] [place] [address] [facility] Care Teams Customer Service Teller Relationship Specialty Start Date End Date Lorenza Tony PA PCP - General Physician Security Incident Response Engineer 09/18/24 Additional Source Comments The information contained in this document represents components of the legal health record. It is not the complete legal health record.[facility]
[2025-01-09 11:28] LABS: Hematocrit 36.5 % (37.0-47.0); Hemoglobin 12.2 g/dl (12.0-16.0); Mean Corpuscular HGB Conc 33.4 g/dl (31.0-35.0); Mean Corpuscular Hemoglobin 28.6 pg (27.0-33.0); Mean Corpuscular Volume 85.7 fL (80.0-98.0); NRBC Abs Auto 0.000 X10*3/uL (0.0-0.012); NRBC Pct Auto 0.0 /100WBC (0.0-0.2); Platelet Count 211 X10*3/uL (160-400); Red Blood Count 4.26 X10*6/uL (4.20-5.50); White Blood Count 4.3 X10*3/uL (4.8-10.8)
[2025-01-09 11:36] LABS: Alanine Aminotransferase 20 U/L (0-31); Albumin Level 4.3 g/dL (3.5-5.0); Alkaline Phosphatase 67 U/L (39-117); Anion Gap 10 (12-20); Aspartate Amino Transferase 21 U/L (5-31); Blood Urea Nitrogen 14 mg/dL (9-16); Calcium 8.4 mg/dL (8.4-10.2); Carbon Dioxide 23 mmol/L (22-29); Chloride 111 mmol/L (96-108); Cholesterol 144 mg/dL (<200); Estimated Glomerular Filt Rate > 60; HDL Cholesterol 52 mg/dL (>40); Iron 66 mcg/dL (30-160); Percent Iron Saturation 25 % (15-50); Potassium 3.6 mmol/L (3.3-5.1); Sodium 140 mmol/L (135-145); Total Iron Binding Capacity 266 mcg/dL (228-428); Total Protein 6.5 g/dL (6.5-8.0); Triglycerides 56 mg/dL (<150); Unsaturated Iron Binding 200 ug/dL
[2025-01-09 11:57] LABS: Ferritin 24 ng/mL (10-122)
== END 2025-01-09 08:46 | disposition home or self-care (01) ==
LOC: HO.WFDLDS 08:45
PROVIDERS: Referring Provider Internal Medicine; Visit Provider Physician Assistant Medical
DX: Z00.00 Encounter for general adult medical examination without abnormal findings (principal); Z13.6 Encounter for screening for cardiovascular disorders; E04.2 Nontoxic multinodular goiter; E78.5 Hyperlipidemia, unspecified; D50.0 Iron deficiency anemia secondary to blood loss (chronic)
CPT/HCPCS: 36415; 80053; 80061; 82728; 83540; 84443; 85027; 86376